=== PATIENT | female | born 1935 | race African-American/Black ===

== ENCOUNTER 2017-09-15 10:04 | Outpatient (CLI) | payer MEDICARE ==
[~2017-09-15 10:04] MED LIST: Magnevist 469MG/ML 20 ML VIAL ONE
--- NOTE | 2017-09-15 13:43 | MRI ---
MRI BRAIN WITH AND WITHOUT CONTRAST MRI INTERNAL AUDITORY CANAL WITH AND WITHOUT CONTRAST: History: Sensorineural hearing loss. 81-year-old female. FINDINGS: Normal sized ventricular system is present. There is no mass effect, midline shift, or acute territor ial infarction. 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 The images skull base flow voids are patent. 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 These do partially efface th e 7th/8th cranial nerve complexes bilaterally. Otherwise, no discrete, pathologic enhancement of eith er 7th or 8th cranial nerve complexes identified. No mass at either CP angle cistern evident. There i s no pathologic intraaxial enhancement. IMPRESSION: 1. Prominent vascular loops of each CP angle cistern which do abut and somewhat efface the cisternal/ canalicular aspects of each 7th/8th cranial nerve complex. Recommend clinical correlation in this reg patricia. 2. No acute intracranial abnormalities. 3. Mild chronic microvascular ischemic disease. POS: [facility]
== END 2017-09-15 10:05 | disposition home or self-care (01) ==
LOC: SCSMRI 10:04
PROVIDERS: ATTEND Specialist
DX: H90.3 Sensorineural hearing loss, bilateral (principal); I67.82 Cerebral ischemia
CPT/HCPCS: 70553; A9579

== ENCOUNTER 2022-11-28 13:48 | Outpatient (CLI) | payer MEDICARE ==
[2022-11-28 14:52] LABS: #Basophils 0.1 10x3/uL (0.0-0.2); #Eosinphils 0.1 10x3/uL (0.0-0.5); #Monocytes 0.5 10x3/uL (0.0-1.1); #Neutrophils 5.7 10x3/uL (1.5-8.4); %Basophils 0.6 % (0.0-2.0); %Eosinophils 0.7 % (0.0-6.0); %Lymphocytes 24.4 % (18.0-47.0); %Monocytes 5.9 % (0.0-10.0); %Neutrophils 68.2 % (40.0-75.0); Hematocrit 36.6 % (34.9-44.5); Hemoglobin 11.9 g/dL (12.0-15.5); Mean Corpuscular HGB CONC 32.5 g/dL (32.0-36.0); Mean Corpuscular Hemoglobin 28.4 pg (27.0-33.0); Mean Corpuscular Volume 87.4 fl (81.6-98.3); Mean Platelet Volume 11.7 fl (7.4-10.4); Platelet Count 174 10x3/uL (150-450); RBC Distribution Width 12.8 % (11.5-14.5); Red Blood Cell (RBC) Count 4.19 10x6/uL (3.90-5.03); White Blood Cell (WBC) Count 8.4 10x3/uL (3.5-10.5)
[2022-11-28 15:19] LABS: Anion Gap 13 mmol/L (10-20); BUN (Urea Nitrogen) 18 mg/dL (9.8-20.1); Calc. Creatinine Clearance 0 mL/min (70-130); Calcium 9.5 mg/dL (7.8-10.44); Carbon Dioxide 29 mmol/L (23-31); Chloride 104 mmol/L (98-107); Estimated GFR 73; Glucose 99 mg/dL (83-110); Potassium 4.1 mmol/L (3.5-5.1); Prothrombin Time 10.4 sec (9.5-12.1); Sodium 142 mmol/L (136-145)
== END 2022-11-28 13:49 | disposition home or self-care (01) ==
LOC: LABBT 13:48
PROVIDERS: ATTEND Orthopaedic Surgery
DX: Z01.812 Encounter for preprocedural laboratory examination (principal); M17.11 Unilateral primary osteoarthritis, right knee
CPT/HCPCS: 80048; 85025; 85610; 87081

== ENCOUNTER 2022-12-02 07:31 | Inpatient (IN) | payer MEDICARE ==
[2022-11-28 14:24] VITALS: BMI 21.4
[2022-12-02] MEDS ORDERED: fentaNYL 50 mcg/mL 1 mL Vial ONE ×7 (07:48→18:21)
[2022-12-02] MEDS ORDERED: Bupivacaine PF 0.5% 30 ML VIAL ONE (07:48)
[2022-12-02] MEDS ORDERED: Vancomycin 1 GM/200 ML (FROZEN) BAG ONE (08:19)
[2022-12-02] MEDS ORDERED: Sodium Chloride 0.9% 100 ML ONE ×3 (08:19→18:09)
[2022-12-02] MEDS ORDERED: Tranexamic Acid 1,000 MG/10 ML VIAL ONE (08:19)
[2022-12-02] MEDS ORDERED: Bupivacaine HCl 0.5%/Epinephrine 1:200,000/PF 30 ml Vial ONE (09:40)
[2022-12-02] MEDS ORDERED: Bupivacaine 0.25% HCL 30 ML VIAL ONE (09:49)
[2022-12-02] MEDS ORDERED: Ropivacaine 0.2% 550 ML 550 ML NERVE BLCK SCH (10:00)
[2022-12-02] MEDS ORDERED: traMADol HCl 50 MG TAB PO PRN (10:00)
[2022-12-02] MEDS ORDERED: Ondansetron PF 4 MG/2 ML Vial IVP PRN ×2 (10:00→11:57)
[2022-12-02] MEDS ORDERED: Promethazine HCl 25 MG/ML VIAL IM PRN ×3 (10:00→11:57)
[2022-12-02] MEDS ORDERED: Zolpidem Tartrate 5 MG TAB PO PRN ×2 (10:00→11:57)
[2022-12-02] MEDS ORDERED: CEFAZOLIN 2 GM VIAL ONE ×2 (10:08→18:08)
[2022-12-02] MEDS ORDERED: Sevoflurane 250 ML INH ANEST BOTTLE ONE (10:26)
[2022-12-02] MEDS ORDERED: Ondansetron PF 4 MG/2 ML Vial ONE ×2 (10:27→10:56)
[2022-12-02] MEDS ORDERED: Lidocaine 1% PF 5 ML VIAL ONE (10:27)
[2022-12-02] MEDS ORDERED: PROPOFOL 200 MG/20 ML VIAL ONE (10:27)
[2022-12-02] MEDS ORDERED: Ondansetron HCl/PF 4 MG/2 ML Vial IVP PRN (10:53)
[2022-12-02] MEDS ORDERED: Labetalol HCl 100 MG/20 ML VIAL ONE (12:32)
[2022-12-02] MEDS ORDERED: hydrALAZINE 20 MG/ML VIAL ONE ×2 (12:53→13:11)
[2022-12-02] MEDS ORDERED: Aspirin 81 mg Enteric Coated Tablet PO SCH (13:30)
[2022-12-02] MEDS: Sodium Chloride 0.9% 1,000 ML IV SCH ×2 (14:15→19:44)
[2022-12-02] MEDS: CEFAZOLIN 2 GM in Sodium Chloride 0.9% 100 ML IVPB SCH (18:15)
[2022-12-02] MEDS: Aspirin 81 mg Enteric Coated Tablet PO SCH (19:41)
[2022-12-02] MEDS: Acetaminophen 325 MG TAB PO PRN (23:47)
[2022-12-02] MEDS: fentaNYL 50 mcg/mL 1 mL Vial SLOW IVP PRN (23:47)
[2022-12-03] MEDS: CEFAZOLIN 2 GM in Sodium Chloride 0.9% 100 ML IVPB SCH (01:10)
[2022-12-03] MEDS: traMADol HCl 50 MG TAB PO PRN ×4 (01:10→20:58)
[2022-12-03] MEDS: Acetaminophen 325 MG TAB PO PRN (05:40)
[2022-12-03 06:05] LABS: Hematocrit 30.7 % (36.0-47.0); Hemoglobin 10.1 g/dL (12.0-16.0); Mean Corpuscular HGB CONC 32.9 g/dL (32.0-36.0); Mean Corpuscular Hemoglobin 29.3 pg (27.0-31.0); Mean Platelet Volume 12.2 fL (7.4-10.4); Platelet Count 147 10x3/uL (130-400); RBC Distribution Width 12.9 % (11.5-14.5); Red Blood Cell (RBC) Count 3.45 mill/uL (4.20-5.40); White Blood Cell (WBC) Count 12.7 10x3/uL (4.8-10.8)
[2022-12-03 07:40] LABS: Anion Gap 16 mmol/L (10-20); BUN (Urea Nitrogen) 12 mg/dL (9.8-20.1); Calc. Creatinine Clearance 45 mL/min (70-130); Calcium 9.2 mg/dL (7.8-10.44); Carbon Dioxide 24 mmol/L (23-31); Chloride 97 mmol/L (98-107); Estimated GFR 74; Glucose 178 mg/dL (83-110); Potassium 3.4 mmol/L (3.5-5.1); Sodium 134 mmol/L (136-145)
[2022-12-03] MEDS: Ferrous Gluconate 324 MG TAB PO SCH ×2 (08:33→16:19)
[2022-12-03] MEDS: Senokot S 8.6-50 MG TAB PO SCH ×2 (08:33→20:59)
[2022-12-03] MEDS: Multivitamin W/ Minerals 1 TAB PO SCH (08:33)
[2022-12-03] MEDS: Sodium Chloride 0.9% 1,000 ML IV SCH ×2 (08:33→17:53)
[2022-12-03] MEDS: Aspirin 81 mg Enteric Coated Tablet PO SCH ×2 (08:33→20:58)
[2022-12-03] MEDS ORDERED: FLU VACC QS2023(65UP)/MF59C/PF 60 MCG/0.5 ML SYRINGE IM ONE (09:00)
[2022-12-03] MEDS ORDERED: HumaLOG 300 UNITS/3 ML VIAL SC PRN (13:00)
[2022-12-03] MEDS ORDERED: Glucagon 1 MG/ML KIT IM PRN (13:00)
[2022-12-03] MEDS ORDERED: Dextrose 50% Abboject 50 ML SYRINGE IVP PRN (13:00)
[2022-12-03] MEDS ORDERED: Dextrose 5% in Water 1,000 ML IV PRN (13:00)
[2022-12-03] MEDS: fentaNYL 50 mcg/mL 1 mL Vial SLOW IVP PRN (13:18)
[2022-12-03] MEDS ORDERED: Losartan 25 MG TAB PO SCH (14:45)
[2022-12-03] MEDS ORDERED: Metoprolol Tartrate 25 MG TAB PO SCH (14:45)
[2022-12-03] MEDS: Metoprolol Tartrate 25 MG TAB PO SCH (20:58)
[2022-12-03] MEDS: Atorvastatin Calcium 10 MG TAB PO SCH (20:59)
[2022-12-04] MEDS: Sodium Chloride 0.9% 1,000 ML IV SCH ×2 (05:33→18:36)
[2022-12-04] MEDS: Levothyroxine Sodium 25 MCG TAB PO SCH (05:35)
[2022-12-04 06:01] LABS: Hematocrit 27.1 % (36.0-47.0); Hemoglobin 8.8 g/dL (12.0-16.0); Mean Corpuscular HGB CONC 32.5 g/dL (32.0-36.0); Mean Corpuscular Hemoglobin 28.9 pg (27.0-31.0); Mean Corpuscular Volume 88.9 fl (78.0-98.0); Mean Platelet Volume 12.5 fL (7.4-10.4); Platelet Count 124 10x3/uL (130-400); RBC Distribution Width 12.9 % (11.5-14.5); Red Blood Cell (RBC) Count 3.05 mill/uL (4.20-5.40); White Blood Cell (WBC) Count 13.8 10x3/uL (4.8-10.8)
[2022-12-04] MEDS: Multivitamin W/ Minerals 1 TAB PO SCH (09:22)
[2022-12-04] MEDS: Potassium Chloride 10 MEQ TAB PO SCH (09:22)
[2022-12-04] MEDS: Losartan 25 MG TAB PO SCH (09:22)
[2022-12-04] MEDS: Aspirin 81 mg Enteric Coated Tablet PO SCH ×2 (09:22→19:55)
[2022-12-04] MEDS: Metoprolol Tartrate 25 MG TAB PO SCH ×2 (09:22→19:55)
[2022-12-04] MEDS: Senokot S 8.6-50 MG TAB PO SCH ×2 (09:22→19:55)
[2022-12-04] MEDS: traMADol HCl 50 MG TAB PO PRN (09:22)
[2022-12-04] MEDS: Ferrous Gluconate 324 MG TAB PO SCH ×2 (09:23→17:35)
[2022-12-04] MEDS: Furosemide 20 MG TAB PO SCH (09:23)
[2022-12-04] MEDS: Atorvastatin Calcium 10 MG TAB PO SCH (19:55)
[2022-12-05] MEDS: fentaNYL 50 mcg/mL 1 mL Vial SLOW IVP PRN ×2 (01:40→05:09)
[2022-12-05] MEDS: traMADol HCl 50 MG TAB PO PRN ×3 (04:02→17:45)
[2022-12-05] MEDS: Levothyroxine Sodium 25 MCG TAB PO SCH (04:05)
[2022-12-05] MEDS: Sodium Chloride 0.9% 1,000 ML IV SCH ×3 (04:19→20:15)
[2022-12-05 06:29] LABS: Hematocrit 28.1 % (36.0-47.0); Hemoglobin 9.2 g/dL (12.0-16.0); Mean Corpuscular HGB CONC 32.7 g/dL (32.0-36.0); Mean Corpuscular Hemoglobin 29.1 pg (27.0-31.0); Mean Corpuscular Volume 88.9 fl (78.0-98.0); Platelet Count 144 10x3/uL (130-400); RBC Distribution Width 12.5 % (11.5-14.5); Red Blood Cell (RBC) Count 3.16 mill/uL (4.20-5.40); White Blood Cell (WBC) Count 12.7 10x3/uL (4.8-10.8)
[2022-12-05] MEDS: Potassium Chloride 10 MEQ TAB PO SCH (11:00)
[2022-12-05] MEDS: Multivitamin W/ Minerals 1 TAB PO SCH (11:00)
[2022-12-05] MEDS: Furosemide 20 MG TAB PO SCH (11:00)
[2022-12-05] MEDS: Aspirin 81 mg Enteric Coated Tablet PO SCH ×2 (11:00→20:15)
[2022-12-05] MEDS: Ferrous Gluconate 324 MG TAB PO SCH ×2 (11:00→17:45)
[2022-12-05] MEDS: Metoprolol Tartrate 25 MG TAB PO SCH ×2 (11:00→20:15)
[2022-12-05] MEDS: Losartan 25 MG TAB PO SCH (11:00)
[2022-12-05] MEDS: Senokot S 8.6-50 MG TAB PO SCH ×2 (11:00→20:15)
[2022-12-05 11:32] LABS: Anion Gap 13 mmol/L (10-20); BUN (Urea Nitrogen) 16 mg/dL (9.8-20.1); Calc. Creatinine Clearance 47 mL/min (70-130); Calcium 9.5 mg/dL (7.8-10.44); Carbon Dioxide 29 mmol/L (23-31); Chloride 95 mmol/L (98-107); Estimated GFR 78; Glucose 148 mg/dL (83-110); Potassium 3.5 mmol/L (3.5-5.1); Sodium 133 mmol/L (136-145)
[2022-12-05] MEDS ORDERED: Potassium Bicarbonate/Cit Ac 20 MEQ TAB PO SCH (18:45)
[2022-12-05] MEDS: Atorvastatin Calcium 10 MG TAB PO SCH (20:15)
[2022-12-06] MEDS: Sodium Chloride 0.9% 1,000 ML IV SCH ×3 (05:27→23:56)
[2022-12-06] MEDS: Levothyroxine Sodium 25 MCG TAB PO SCH (05:59)
[2022-12-06] MEDS: traMADol HCl 50 MG TAB PO PRN ×2 (08:31→14:12)
[2022-12-06] MEDS: Ferrous Gluconate 324 MG TAB PO SCH ×2 (09:17→18:37)
[2022-12-06] MEDS: Multivitamin W/ Minerals 1 TAB PO SCH (09:17)
[2022-12-06] MEDS: Metoprolol Tartrate 25 MG TAB PO SCH ×2 (09:17→20:28)
[2022-12-06] MEDS: Senokot S 8.6-50 MG TAB PO SCH ×2 (09:17→20:28)
[2022-12-06] MEDS: Losartan 25 MG TAB PO SCH (09:17)
[2022-12-06] MEDS: Aspirin 81 mg Enteric Coated Tablet PO SCH ×2 (09:17→20:28)
[2022-12-06] MEDS: Potassium Chloride 10 MEQ TAB PO SCH (09:17)
[2022-12-06] MEDS: Furosemide 20 MG TAB PO SCH (09:17)
[2022-12-06] MEDS ORDERED: Polyethylene Glycol 3350 17 GM Packet PO SCH (10:00)
[2022-12-06] MEDS: fentaNYL 50 mcg/mL 1 mL Vial SLOW IVP PRN (16:25)
[2022-12-06] MEDS: Atorvastatin Calcium 10 MG TAB PO SCH (20:28)
[2022-12-07] MEDS: fentaNYL 50 mcg/mL 1 mL Vial SLOW IVP PRN ×2 (02:15→20:26)
[2022-12-07] MEDS: diphenhydrAMINE 25 MG CAP PO PRN ×2 (04:30→20:26)
[2022-12-07] MEDS: Levothyroxine Sodium 25 MCG TAB PO SCH (05:14)
[2022-12-07] MEDS: Losartan 25 MG TAB PO SCH (07:36)
[2022-12-07] MEDS: Metoprolol Tartrate 25 MG TAB PO SCH ×2 (07:36→20:20)
[2022-12-07] MEDS: Furosemide 20 MG TAB PO SCH (07:36)
[2022-12-07] MEDS: Ferrous Gluconate 324 MG TAB PO SCH ×2 (07:36→16:30)
[2022-12-07] MEDS: Polyethylene Glycol 3350 17 GM Packet PO SCH (07:37)
[2022-12-07] MEDS: Multivitamin W/ Minerals 1 TAB PO SCH (07:37)
[2022-12-07] MEDS: Aspirin 81 mg Enteric Coated Tablet PO SCH ×2 (07:37→20:20)
[2022-12-07] MEDS: Senokot S 8.6-50 MG TAB PO SCH ×2 (07:37→20:20)
[2022-12-07] MEDS: Potassium Chloride 10 MEQ TAB PO SCH (08:11)
[2022-12-07] MEDS: traMADol HCl 50 MG TAB PO PRN ×2 (10:34→16:30)
[2022-12-07] MEDS: Sodium Chloride 0.9% 1,000 ML IV SCH ×2 (14:34→20:04)
[2022-12-07] MEDS: Atorvastatin Calcium 10 MG TAB PO SCH (20:20)
[2022-12-08] MEDS: Sodium Chloride 0.9% 1,000 ML IV SCH (05:24)
[2022-12-08] MEDS: Levothyroxine Sodium 25 MCG TAB PO SCH (05:27)
[2022-12-08] MEDS: traMADol HCl 50 MG TAB PO PRN (09:50)
[2022-12-08] MEDS: Multivitamin W/ Minerals 1 TAB PO SCH (09:50)
[2022-12-08] MEDS: Metoprolol Tartrate 25 MG TAB PO SCH (09:51)
[2022-12-08] MEDS: Losartan 25 MG TAB PO SCH (09:51)
[2022-12-08] MEDS: Ferrous Gluconate 324 MG TAB PO SCH (09:51)
[2022-12-08] MEDS: Furosemide 20 MG TAB PO SCH (09:51)
[2022-12-08] MEDS: Polyethylene Glycol 3350 17 GM Packet PO SCH (09:51)
[2022-12-08] MEDS: Potassium Chloride 10 MEQ TAB PO SCH (09:51)
[2022-12-08] MEDS: Aspirin 81 mg Enteric Coated Tablet PO SCH (09:51)
[2022-12-08 13:00] VITALS: BP 137/73; TEMP 98.2
== END 2022-12-08 14:30 | disposition swing bed (61) | DRG 470 ==
LOC: SDC 07:31 → EDSTATUS 14:00 → SURG A 19:01 → OBSVTOIN 12-03 09:08
PROVIDERS: ADMIT Orthopaedic Surgery; ATTEND Orthopaedic Surgery
PROC: 0SRC0J9 Replacement of Right Knee Joint with Synthetic Substitute, Cemented, Open Approach (ICD-10-PCS; principal; 2022-12-02)
DX: M17.11 Unilateral primary osteoarthritis, right knee (principal); E87.1 Hypo-osmolality and hyponatremia; K21.9 Gastro-esophageal reflux disease without esophagitis; E03.9 Hypothyroidism, unspecified; E78.5 Hyperlipidemia, unspecified; E87.6 Hypokalemia; N18.2 Chronic kidney disease, stage 2 (mild); I12.9 Hypertensive chronic kidney disease with stage 1 through stage 4 chronic kidney disease, or unspecified chronic kidney disease; E11.22 Type 2 diabetes mellitus with diabetic chronic kidney disease; Z96.652 Presence of left artificial knee joint; Z79.899 Other long term (current) drug therapy; Z90.710 Acquired absence of both cervix and uterus; Z98.890 Other specified postprocedural states; Z86.73 Personal history of transient ischemic attack (TIA), and cerebral infarction without residual deficits; Z88.8 Allergy status to other drugs, medicaments and biological substances; Z88.2 Allergy status to sulfonamides; Z88.5 Allergy status to narcotic agent; Z79.82 Long term (current) use of aspirin; Z79.890 Hormone replacement therapy
CPT/HCPCS: 36415; 36416; 80048; 83735; 85027; 96374; 96375; A4306; C1776; G0378; J0360; J1815; J2405; J2704; J2795; J3010; J3370-JW; J3490; S0020